=== PATIENT | male | born 1990 | race Two or more races ===

== ENCOUNTER 2017-08-15 14:23 | Emergency (ER) | payer SELFPAY ==
[~2017-08-15] VITALS: Ht 175.3 cm; Wt 104.3 kg
[2017-08-15] MEDS ORDERED: IBUPROFEN600 MG ORAL (15:19)
[2017-08-15 15:55] VITALS: BP 160/95
--- NOTE | 2017-08-15 21:29 | Emergency Room Report ---
History of Present Illness General Chief Complaint: General Complaint Source: Patient Present Illness HPI 27-year-old male presents ED complaining of possible closure of pain in the left arm.Patient denies history of injury. Patient complains of mild pain localized to left antecubital fossa for the past "few days". Patient denies pain with movement. Patient denies numbness, tingling, burning in arm. Patient denies history of blood problems. Patient denies history of dizziness and weakness. Patient denies fever, rash, muscle weakness, loss of function of the extremities , muscle aches. Allergies: Coded Allergies: No Known Allergies (Unverified , 08/15/17) Patient History Past Medical History: see triage record - none is 1 in Immunizations: UTD Reviewed Nursing Documentation: PMH: Agreed, PSxH: Agreed Nursing Documentation-PMH Past Medical History: No History, Except For Hx Hypertension: Yes Review of Systems All Other Systems: negative except mentioned in HPI Physical Exam Vital Signs Date Time Temp Pulse Resp B/P (MAP) Pulse Ox O2 Delivery O2 Flow Rate FiO2 08/15/17 14:29 98.2 86 16 154/101 97 Room Air Sp02 EP Interpretation: reviewed, normal General Appearance: no apparent distress, alert, GCS 15, non-toxic Head: normocephalic, atraumatic Eyes: bilateral eye normal inspection, bilateral eye PERRL, bilateral eye EOMI ENT: hearing grossly normal, normal pharynx, no angioedema, normal voice, uvula midline, moist mucus membranes Neck: full range of motion, supple/symm/no masses Respiratory: chest non-tender, lungs clear, normal breath sounds, no respiratory distress, speaking full sentences Cardiovascular #1: regular rate, rhythm, no gallop, no murmur, no rub Cardiovascular #2: 2+ radial (R), 2+ radial (L) Musculoskeletal: back normal, digits/nails normal, gait/station normal, normal range of motion, non-tender, other - NVI. Gunner test negative for occlusion of vasculature. Neurologic: alert, oriented x3, responsive, motor strength/tone normal, sensory intact, speech normal Skin: normal color, no rash, warm/dry, well hydrated Medical Decision Making PA Attestation Dr. Alcantara is my supervising Physician whom patient management has been discussed with. Diagnostic Impression: Primary Impression: Arm numbness left ER Course Pt. presents to the ED c/o left arm pain. Ddx considered but are not limited to arterial occlusion, venous occlusion, carpal tunnel syndrome, ulnar tunnel syndrome, thoracic outlet syndrome, tendonitis. Vital signs: are WNL, pt. is afebrile ORDERS: none required at this time, the diagnosis is clinical ED INTERVENTIONS: None required at this time. DISCHARGE: At this time pt. is stable for d/c to home. Will provide printed patient care instructions, and any necessary prescriptions. Care plan and follow up instructions have been discussed with the patient prior to discharge Last Vital Signs Date Time Temp Pulse Resp B/P (MAP) Pulse Ox O2 Delivery O2 Flow Rate FiO2 08/15/17 15:55 81 17 160/95 95 Room Air 08/15/17 14:29 98.2 Disposition: HOME, SELF-CARE Condition: Stable Scripts Ibuprofen* (MOTRIN*) 600 Mg Tablet 600 MG ORAL Q8H Y for For Pain, #30 TAB 0 Refills Prov: Vinod Sam 08/15/17 Referrals: NOT CHOSEN [facility]/,REFERRING (PCP) Additional Instructions: Followup with primary care provider in 3 -5 days. Take medications as directed. Patient questions asked and answered. ER precautions given, patient instructed to return to ER immediately for any new or worsening of symptoms. Vinod Sam Aug 15, 2017 21:29
== END 2017-08-15 15:55 | disposition home or self-care (01) ==
LOC: EMR 15:15
DX: R20.0 Anesthesia of skin (principal); M79.602 Pain in left arm; I10 Essential (primary) hypertension
CPT/HCPCS: 99283